=== PATIENT | male | born 1990 | race Caucasian/White ===

== ENCOUNTER → 2018-01-11 15:03 | Outpatient (REF) | payer OTHER, SELFPAY ==
[2018-01-11 15:08] LABS: Microscopic, Urine URINE MICROSCOPIC (MICROSCOPIC)
[2018-01-11 19:41] LABS: Alanine Aminotransferase 87 U/L (12-78); Albumin Level 3.9 gm/dL (3.4-5.0); Albumin/Globulin Ratio 1.1 (1.1-1.8); Alkaline Phosphatase 67 U/L (46-116); Anion Gap 13.4 mEq/L (5-15); Aspartate Amino Transferase 55 U/L (15-37); Bilirubin,Total 0.2 mg/dL (0.2-1.0); Blood Urea Nitrogen 9 mg/dL (7-18); Calcium 9.2 mg/dL (8.5-10.1); Carbon Dioxide 26 mmol/L (21.0-32.0); Chloride 105 mmol/L (98-107); Creatinine,Serum 0.66 mg/dL (0.70-1.30); Estimated Glomerular Filt Rate 144 ml/min (>60); Free T4 (Free Thyroxine) 1.19 ng/dl (0.76-1.46); GFR (African American) 174 ML/MIN (>60); Globulin 3.4 gm/dl (1.3-3.2); Glucose 94 mg/dL (74-106); Potassium 4.4 mmoL/L (3.5-5.1); Sodium 140 mmol/L (136-145); Thyroid Stimulating Hormone 0.48 uIU/ml (0.358-3.740); Total Protein,Serum 7.3 gm/dL (6.4-8.2)
[2018-01-11 19:57] LABS: Basophils % 0.2 % (0.1-2.0); Eosinophils # 0.1 K/mm3 (0.0-0.4); Hematocrit 43.9 % (42.0-52.0); Hemoglobin 14.3 g/dL (14.1-18.0); Lymphocytes # 1.7 K/mm3 (0.7-4.5); Mean Corpuscular HGB Conc 32.6 g/dL (31.8-35.4); Mean Corpuscular Hemoglobin 30.8 pg (27.0-31.2); Mean Corpuscular Volume 94.5 fl (80-94); Mean Platelet Volume 8.8 fl (7.4-10.4); Monocytes # 0.5 K/mm3 (0.1-1.0); Neutrophils # 9.2 K/mm3 (1.8-7.8); Neutrophils % 79.9 % (37.0-80.0); Platelet Count 256 K/mm3 (142-424); Red Blood Count 4.65 M/mm3 (4.60-6.20); Red Cell Distribution Width 12.6 % (11.5-17.5); White Blood Count 11.5 K/mm3 (4.8-10.8)
[2018-01-11 21:28] LABS: Bacteria,Urine Trace /lpf; Squamous Epithelial Cell,Urine Occasional #/hpf (0-5); WBC,Urine Occasional #/hpf (0-3)
[2018-01-11 21:30] LABS: Appearance,Urine CLEAR (Clear); Bilirubin,Urine Negative (Negative); Blood, Urine Negative (Negative); Color,Urine YELLOW (Yellow); Glucose,Urine (UA) Negative (Negative); Ketones,Urine Negative (Negative); Leukocyte Esterase,Urine Negative (Negative); Nitrate,Urine Negative (Negative); Protein,Urine Negative (Negative); Urobilinogen,Urine 0.2 EU/dl (0.2)
[2018-01-13 06:17] LABS: Hep A Ab, IgM Negative (Negative); Hepatitis B Core Antibody IgM Negative (Negative); Hepatitis B Surface Antigen Negative (Negative)
[2018-01-13 06:41] LABS: Hepatitis C Antibody >11.0 s/co ratio (0.0-0.9)
== END ==
LOC: LAB 15:03
PROVIDERS: Visit Provider Emergency Medicine
DX: Z79.899 Other long term (current) drug therapy (principal)
CPT/HCPCS: 80053; 80074; 81001; 84439; 84443; 85025; 87522

== ENCOUNTER 2020-02-08 14:25 | Emergency (ER) | payer MEDICAID, SELFPAY ==
[2020-02-08 14:25] VITALS: BP 158/110; PULSE 103; RESP 20; TEMP 36.7; O2SAT 99; BMI 27.3
[2020-02-08 14:41] LABS: Microscopic, Urine URINE MICROSCOPIC (MICROSCOPIC)
--- NOTE | 2020-02-08 14:41 | HMH.EDGENADL ---
ED Disposition Clinical Impression: Methamphetamine abuse, Acute anxiety Disposition: Home, Self-Care Condition on Discharge: Good Instructions: DI for Anxiety -- Adult, Substance Use Disorder Referrals: Gonzales Castellanos MD [Staff Physician] - 3 days - Critical Care Critical Care Time: No Attestation: On , the high probability of a clinically significant, sudden or life threatening deterioration of the following system(s) required my full and direct attention, intervention and personal management. The time I documented below is in addition to time spent performing reported procedures but includes the following listed in this critical care notation. Medical Decision Making - Medical Records Medical records reviewed: Yes: I reviewed the patient's medical records. - Matthew Inquiry Pt receiving controlled substance: No Vital Signs: 02/08/20 14:25 Temperature 98.1 F Temperature Source Oral Pulse Rate [Right] 103 H Respiratory Rate 20 Blood Pressure [Right Arm] 158/110 H Blood Pressure Mean [Right Arm] 126 02 Sat by Pulse Oximetry 99 - Lab Data Lab Results 02/08/20 14:37: Urine Color Yellow, Urine Appearance Clear, Urine pH 7.0, Ur Specific [place] 1.025, Urine Protein Negative, Urine Glucose (UA) Negative, Urine Ketones Negative, Urine Blood Negative, Urine Nitrate Negative, Urine Bilirubin Negative, Urine Urobilinogen 1.0, Ur Leukocyte Esterase Negative, Urine RBC None, Urine WBC Occasional, Ur Squamous Epith Cells None, Urine Bacteria Trace Orders (Tests/Meds): ORDERS Category Date Time Status UDS [Drug Screen,Urine] Stat Lab 02/08/20 14:37 Received - ECG Data Tracing #1 EKG at 1447 shows a sinus rhythm with a rate of 72. No acute ST segment elevation or depression. No hyperacute T waves. Normal intervals. EKG interpreted by me. Medical Decision Narrative: Patient with agitation, anxiety, confusion and weakness after using methamphetamine. He appears somewhat dehydrated with dry mucous membranes. Recommended oral rehydration, avoiding drug use and following up with primary care provider to consider assistance with outpatient withdrawal regimen. Discharged home. He is alert and oriented x4 and is discharged with friends who brought him here. General Adult HPI - General Stated complaint: AMS Time Seen by Provider: 02/08/20 14:41 Mode of Arrival: Ambulatory Source of Information: Patient Limitations: No Limitations - History of Present Illness HPI narrative: This is a 30-year-old male who presents to the emergency department for feeling like my mind is not working right . He is alert and oriented x4. Friends at bring him and were concerned because he had an angry outburst earlier today at home. No recent fevers or illnesses. No exacerbating or alleviating factors. Initially patient did not admit to any drug use with nursing staff, but admits to me that he has used methamphetamine and feels weak, confused. No vomiting or diarrhea. No chest pain or shortness of breath. Decreased urination. - Related Data Previous Rx's Medication Instructions Recorded Mupirocin Calcium [Mupirocin 2% 1 applicatio TP TID #1 tube 01/08/20 Cream 15gm] cephALEXin [Keflex 500mg Cap] 500 mg PO Q6H 7 Days #28 cap 01/08/20 Allergies Allergy/AdvReac Type Severity Reaction Status Date / Time codeine Allergy Mild Rash Verified 02/08/18 08:26 [facility] History - Hepatitis A Screen Attestation statement:: This patient has been screened for Hepatitis A risk factors. I have reviewed the patient's past medical history: Yes Medical History: Reports:: Anxiety Other Surgeries: Yes: No Previous Surgery Amputation: No Fractures: Yes - Social History Smoking Status: Current every day smoker Tobacco Type: cigarettes # Packs/Day (cigarettes): 1 Alcohol Intake: never Substance Use Type: former substance user, crack/cocaine, heroin, opiates, methamphetamine Occupational Status: ot
[2020-02-08 14:44] LABS: Appearance,Urine CLEAR (Clear); Bilirubin,Urine Negative (Negative); Blood, Urine Negative (Negative); Color,Urine YELLOW (Yellow); Glucose,Urine (UA) Negative (Negative); Ketones,Urine Negative (Negative); Leukocyte Esterase,Urine Negative (Negative); Nitrate,Urine Negative (Negative); Protein,Urine Negative (Negative); Specific Gravity, Urine 1.025 (1.005-1.030)
--- NOTE | 2020-02-08 14:47 | ECG_ITS ---
APPROVED REPORT Exam: Resting ECG HR:72 bpm ECG Measurements Heart Rate 72 AXES GA 140 P 51 QRSd 90 QRS 53 QT 370 T 48 QTc 405 <Conclusion> Normal sinus rhythm Normal ECG Electronically signed by : Justo Davis, 02/09/2020 12:44:46
[2020-02-08 14:53] LABS: Bacteria,Urine Trace /lpf; WBC,Urine Occasional #/hpf (0-3)
[2020-02-08 14:57] LABS: Benzodiazepines Screen,Urine Negative ng/ml (<200)
[2020-02-08 14:58] LABS: Barbiturates Screen,Urine Negative ng/ml (<200)
[2020-02-08 14:59] LABS: Cannabinoid Screen,Urine Positive ng/ml (<50)
[2020-02-08 15:00] LABS: Cocaine Screen,Urine Negative ng/ml (<300); Methadone Screen,Urine Negative ng/ml (<300)
[2020-02-08 15:01] LABS: Opiate Screen,Urine Negative ng/ml (<300)
[2020-02-08 15:02] LABS: Phencyclidine Screen,Urine Negative ng/ml (<25)
[2020-02-08 15:10] VITALS: BP 158/110; PULSE 103; RESP 20; TEMP 36.7; O2SAT 99
[2020-02-13 16:04] LABS: Amphetamine Positive (.); Amphetamines Positive (.); Methamphetamine Positive (.)
[2020-02-14 11:28] LABS: Amphetamine (GC/MS) 2564 ng/mL (Cutoff=500); Methamphetamine (GC/MS) >4000 ng/mL (Cutoff=500)
== END 2020-02-08 15:16 | disposition home or self-care (01) ==
PROVIDERS: Emergency Provider Emergency Medicine
DX: F15.10 Other stimulant abuse, uncomplicated (principal); F17.210 Nicotine dependence, cigarettes, uncomplicated; F41.9 Anxiety disorder, unspecified
CPT/HCPCS: 80305; 80324; 81001; 93005; 99282; 99283

== ENCOUNTER 2020-04-02 03:49 | Emergency (ER) | payer MEDICAID, SELFPAY ==
[2020-04-02 03:58] VITALS: BP 109/61; PULSE 110; RESP 15; TEMP 36.6; O2SAT 96; BMI 31.0
--- NOTE | 2020-04-02 04:04 | HMH.EDMCLR ---
ED Disposition Clinical Impression: Medical clearance for incarceration Disposition: Home, Self-Care Condition on Discharge: Good Instructions: DI for Drug or Alcohol Withdrawal Additional Instructions: see pcp for follow up Referrals: Provider,Referral, [Primary Care Provider] - - Critical Care Critical Care Time: No Attestation: On 04/02/20, the high probability of a clinically significant, sudden or life threatening deterioration of the following system(s) required my full and direct attention, intervention and personal management. The time I documented below is in addition to time spent performing reported procedures but includes the following listed in this critical care notation. Medical Decision Making - Medical Records Medical records reviewed: Yes: I reviewed the patient's medical records. - Matthew Inquiry Pt receiving controlled substance: No Vital Signs: 04/02/20 03:58 Temperature 97.9 F Temperature Source Oral Pulse Rate [Left Brachial] 110 H Respiratory Rate 15 Blood Pressure [Left Arm] 109/61 L Blood Pressure Mean [Left Arm] 77 Blood Pressure Source [Left Arm] Automatic Cuff Blood Pressure Position [Left Arm] Sitting 02 Sat by Pulse Oximetry 96 Oxygen Delivery Method Room Air - Lab Data Lab results reviewed: Yes: I reviewed the patient's lab results. Medical Clearance HPI - General Chief complaint: Medical Clearance Stated complaint: Medical Clearance Time Seen by Provider: 04/02/20 04:04 Mode of Arrival: Ambulatory Source of Information: Patient, Medical Record Limitations: No Limitations Description of Symptoms (Recalled from ER Triage Doc. by RN): PATIENT BROUGHT IN BY MATTHEW LAMBERT FOR MEDICAL CLEARANCE. - History of Present Illness HPI Narrative: no c/o complaint: medical clearance requested Onset (ago): hour(s) Place: home Traumatic Symptoms: denies traumatic injury Associated Symptoms: denies other symptoms Treatments Prior to Arrival: none Home medications: Previous Rx's Medication Instructions Recorded Mupirocin Calcium [Mupirocin 2% 1 applicatio TP TID #1 tube 01/08/20 Cream 15gm] cephALEXin [Keflex 500mg Cap] 500 mg PO Q6H 7 Days #28 cap 01/08/20 Allergies/Adverse reactions: Allergies Allergy/AdvReac Type Severity Reaction Status Date / Time codeine Allergy Mild Rash Verified 02/08/18 08:26 [facility] History - Hepatitis A Screen Drug use history?: No High risk sexual behaviors?: No History of sexually transmitted infection?: No Currently employed?: No Childcare worker?: No Do you have indoor plumbing?: Yes Do you have electricity?: Yes Attestation statement:: This patient has been screened for Hepatitis A risk factors. I have reviewed the patient's past medical history: Yes Medical History: Reports:: Anxiety Other Surgeries: Yes: No Previous Surgery Amputation: No Fractures: Yes - Social History Smoking Status: Current every day smoker Tobacco Type: cigarettes # Packs/Day (cigarettes): 1 Alcohol Intake: never Substance Use Type: former substance user, crack/cocaine, heroin, opiates, methamphetamine Occupational Status: employed - Psychiatric History Pschychiatric History:: Reports:: Anxiety Family Hx:: Diabetes, Heart Attack, Coronary Artery Disease ROS Obtained: Yes All systems reviewed & no additional complaints - Constitutional Constitutional: Denies fever(s) - Eyes Eyes: Denies change in vision - Cardiovascular Cardiovascular: Denies chest pain - Respiratory Respiratory: No cough - Genitourinary Male Genitourinary: Denies hematuria - Musculoskeletal Musculoskeletal: Denies joint pain - Integumentary/Breasts Skin/Breast: Denies dry skin, Denies lesions - Neurologic Neurologic: Denies abnormal movements Physical Exam - General General appearance: alert - Head Head exam: normocephalic - Eye Eye exam: Present: PERRL, EOMI - ENT ENT exam: Present: mucous membranes moist - Neck
[2020-04-02 04:15] VITALS: BP 109/61; PULSE 110; RESP 15; TEMP 36.6; O2SAT 96
== END 2020-04-02 04:17 | disposition home or self-care (01) ==
PROVIDERS: Emergency Provider Emergency Medicine
DX: Z00.8 Encounter for other general examination (principal)
CPT/HCPCS: 99282

== ENCOUNTER 2020-04-17 14:05 | Emergency (ER) | payer MEDICAID, SELFPAY ==
[2020-04-17 14:05] VITALS: BP 111/69; PULSE 119; RESP 22; TEMP 36.6; O2SAT 100; BMI 35.4
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
[2020-04-17 14:22] VITALS: BP 122/85; PULSE 110; RESP 18; TEMP 36.8; O2SAT 98
== END 2020-04-17 14:25 | disposition home or self-care (01) ==
PROVIDERS: Emergency Provider Emergency Medicine
DX: Z00.8 Encounter for other general examination (principal); F15.10 Other stimulant abuse, uncomplicated; F41.9 Anxiety disorder, unspecified; F19.10 Other psychoactive substance abuse, uncomplicated; F17.210 Nicotine dependence, cigarettes, uncomplicated; Z88.5 Allergy status to narcotic agent
CPT/HCPCS: 99282

== ENCOUNTER 2020-05-14 21:23 | Emergency (ER) | payer MEDICAID, SELFPAY ==
[2020-05-14 21:47] VITALS: BP 135/62; PULSE 83; RESP 18; TEMP 36.6; O2SAT 100; BMI 26.6
--- NOTE | 2020-05-14 21:50 | HMH.EDMCLR ---
ED Disposition Clinical Impression: Methamphetamine abuse Disposition: Home, Self-Care Condition on Discharge: Good Referrals: Gonzales Castellanos MD [Primary Care Provider] - - Critical Care Critical Care Time: No Attestation: On 05/14/20, the high probability of a clinically significant, sudden or life threatening deterioration of the following system(s) required my full and direct attention, intervention and personal management. The time I documented below is in addition to time spent performing reported procedures but includes the following listed in this critical care notation. Medical Decision Making - Medical Records Medical records reviewed: Yes: I reviewed the patient's medical records. - Matthew Inquiry Pt receiving controlled substance: No - Lab Data Lab results reviewed: Yes: I reviewed the patient's lab results. Medical Clearance HPI - General Stated complaint: medical clearance Time Seen by Provider: 05/14/20 21:40 Source of Information: Patient - History of Present Illness complaint: medical clearance requested Onset (ago): hour(s) Reason for Medical Clearance: intoxication Place: home Alleged Intoxication: Yes Compliant with Home Medications: Yes Traumatic Symptoms: denies traumatic injury Associated Symptoms: denies other symptoms Home medications: Previous Rx's Medication Instructions Recorded Mupirocin Calcium [Mupirocin 2% 1 applicatio TP TID #1 tube 01/08/20 Cream 15gm] cephALEXin [Keflex 500mg Cap] 500 mg PO Q6H 7 Days #28 cap 01/08/20 Allergies/Adverse reactions: Allergies Allergy/AdvReac Type Severity Reaction Status Date / Time codeine Allergy Mild Rash Verified 02/08/18 08:26 [facility] History - Hepatitis A Screen Attestation statement:: This patient has been screened for Hepatitis A risk factors. I have reviewed the patient's past medical history: Yes Medical History: Reports:: Anxiety Other Surgeries: Yes: No Previous Surgery Amputation: No Fractures: Yes - Social History Smoking Status: Current every day smoker Tobacco Type: cigarettes # Packs/Day (cigarettes): 1 Alcohol Intake: never Substance Use Type: methamphetamine Occupational Status: unemployed - Psychiatric History Pschychiatric History:: Reports:: Anxiety Family Hx:: Diabetes, Heart Attack, Coronary Artery Disease ROS Obtained: Yes All systems reviewed & no additional complaints - Constitutional Constitutional: Reports system reviewed and no additional complaints, except as docu - Eyes Eyes: Reports system reviewed and no additional complaints, except as docu - ENT Ears, Nose, Mouth, and Throat: Reports system reviewed and no additional complaints, except as docu - Cardiovascular Cardiovascular: Reports system reviewed and no additional complaints, except as docu - Respiratory Respiratory: Yes system reviewed and no additional complaints, except as docu - Gastrointestinal Gastrointestingal: Reports: system reviewed and no additional complaints, except as docu - Genitourinary Male Genitourinary: Reports system reviewed and no additional complaints, except as docu Female Genitourinary: Reports system reviewed and no additional complaints, except as docu - Musculoskeletal Musculoskeletal: Reports system reviewed and no additional complaints, except as docu - Integumentary/Breasts Skin/Breast: Reports system reviewed and no additional complaints, except as docu - Neurologic Neurologic: Reports system reviewed and no additional complaints, except as docu - Endocrine Endocrine: Reports system reviewed and no additional complaints, except as docu - Hematologic/Lymphatic Henatologic/Lymphatic: Reports system reviewed and no additional complaints, except as docu - Allergic/Immunologic Allergic/Immunologic: Reports system reviewed and no additional complaints, except as docu Physical Exam - General General appearance: alert, in no apparent distress - Head Head exa
[2020-05-14 22:09] VITALS: BP 138/58; PULSE 88; RESP 16; TEMP 36.6; O2SAT 100
== END 2020-05-14 22:11 | disposition home or self-care (01) ==
PROVIDERS: Emergency Provider Family Medicine; PCP Emergency Medicine
DX: F15.10 Other stimulant abuse, uncomplicated (principal); F17.210 Nicotine dependence, cigarettes, uncomplicated; Z88.5 Allergy status to narcotic agent
CPT/HCPCS: 99282